=== PATIENT | female | born 1980 | race Caucasian/White ===

== ENCOUNTER 2022-10-31 11:26 | Emergency (ER) | payer OTHER, BC ==
[2022-10-31] MEDS ORDERED: Ondansetron 4 MG/2 ML SDV IVPUSH ONE (11:54)
[2022-10-31 12:09] LABS: ANION GAP 11.3 mmol/L (5-15)
[2022-10-31] MEDS ORDERED: Tamsulosin 0.4 MG Cap.ER PO ONE (12:15)
[2022-10-31] MEDS ORDERED: Sodium Chloride 0.9% 1,000 ML IV ONE (12:15)
[2022-10-31] MEDS ORDERED: Ketorolac 30 MG/ML SDV IVPUSH ONE (12:19)
== END 2022-10-31 13:40 | disposition home or self-care (01) ==
LOC: KA.ED 11:26
DX: N20.0 Calculus of kidney (principal); Z88.1 Allergy status to other antibiotic agents; Z88.6 Allergy status to analgesic agent; Z79.899 Other long term (current) drug therapy
CPT/HCPCS: 36415; 74176; 80053; 81001; 83690; 85025; 96361; 96374; 96375; 99284; 99285-25; A9270-GY; J1885; J2405; J7030

== ENCOUNTER 2022-10-31 14:16 | Observation (INO) | payer OTHER, BC ==
[2022-10-31] MEDS ORDERED: HYDROmorphone 1 MG/ML Syringe ONE (14:26)
[2022-10-31] MEDS ORDERED: Sodium Chloride 0.9% 1,000 ML IV ONE ×2 (14:34→17:29)
[2022-10-31] MEDS ORDERED: Metoclopramide 10 MG/2 ML SDV IVPUSH ONE (14:34)
[2022-10-31] MEDS ORDERED: HYDROmorphone 1 MG/ML Syringe IVPUSH ONE (14:34)
[2022-10-31] MEDS ORDERED: Furosemide 40 MG/4 ML VIAL IVPUSH ONE ×2 (14:49→17:30)
[2022-10-31] MEDS ORDERED: fentaNYL 100 MCG/2 ML SDV IVPUSH ONE (15:04)
[2022-10-31] MEDS: fentaNYL 100 MCG/2 ML SDV ONE ×2 (15:08→15:09)
[2022-10-31] MEDS: Pregabalin 25 MG Cap PO SCH ×2 (15:20→20:48)
[2022-10-31] MEDS: HYDROmorphone 1 MG/ML Syringe IVPUSH ONE ×2 (16:48→17:04)
[2022-10-31] MEDS ORDERED: LORazepam 2 MG/ML SDV IVPUSH ONE (17:38)
[2022-10-31] MEDS ORDERED: Ondansetron 4 MG/2 ML SDV IVPUSH ONE (17:38)
[2022-10-31] MEDS ORDERED: Acetaminophen/HYDROcodone 325-5 MG Tab PO PRN (19:50)
[2022-10-31] MEDS ORDERED: Acetaminophen 500 MG Tab PO PRN (19:50)
[2022-10-31] MEDS ORDERED: Ondansetron 4 MG Tab.DIS PO PRN (19:51)
[2022-10-31] MEDS ORDERED: IBUPROFEN 800 MG PO PRN (19:51)
[2022-10-31] MEDS ORDERED: Ondansetron 4 MG/2 ML SDV IVPUSH PRN (20:02)
[2022-10-31] MEDS ORDERED: LORazepam 0.5 MG Tab PO ONE (20:05)
[2022-10-31] MEDS ORDERED: fentaNYL 100 MCG/2 ML SDV IVPUSH PRN (20:09)
[2022-10-31] MEDS ORDERED: valACYclovir 500 MG Tab PO PRN (20:23)
[2022-10-31] MEDS ORDERED: Sodium Chloride 0.9% 1,000 ML IV SCH (20:30)
[2022-10-31] MEDS ORDERED: Ibuprofen 400 MG Tab PO PRN (20:30)
[2022-10-31] MEDS: Acetaminophen/HYDROcodone 325-5 MG Tab**OWN MED PO PRN (22:05)
[2022-11-01] MEDS: Acetaminophen/HYDROcodone 325-5 MG Tab**OWN MED PO PRN (02:29)
[2022-11-01] MEDS ORDERED: Tamsulosin 0.4 MG Cap.ER PO SCH (09:00)
[2022-11-01] MEDS ORDERED: Tamsulosin 0.4 MG Cap.ER**OWN MED PO SCH (09:00)
[2022-11-01] MEDS: Pregabalin 25 MG Cap PO SCH (09:37)
[2022-11-01] MEDS ORDERED: Sodium Chloride 0.65% Nasal Spray 45 ML Bottle NAS PRN (10:56)
== END 2022-11-01 12:30 | disposition home or self-care (01) ==
LOC: KA.ED 14:16 → KA.MS 17:39 → UNDODISOB 11-01 12:30
PROVIDERS: ADMIT Family Medicine; ATTEND Family Medicine
DX: N20.0 Calculus of kidney (principal); Z79.899 Other long term (current) drug therapy; Z79.82 Long term (current) use of aspirin; Z88.1 Allergy status to other antibiotic agents; Z88.6 Allergy status to analgesic agent
CPT/HCPCS: 82365; 96361; 96374; 96375; 96376; 99284; A9270; G0378; J1170; J1940; J2060; J2405; J2765; J3010; J7030

== ENCOUNTER 2023-08-21 11:55 | Emergency (ER) | payer OTHER, BC ==
[2023-08-21] MEDS ORDERED: Ketorolac 30 MG/ML SDV IVPUSH ONE (12:24)
[2023-08-21] MEDS ORDERED: HYDROmorphone 1 MG/ML Syringe IVPUSH ONE ×2 (12:39→14:04)
[2023-08-21 12:44] LABS: APPEARANCE,URINE SLIGHTLY CLOUDY (CLEAR); BILIRUBIN,URINE NEGATIVE (NEGATIVE); COLOR,URINE YELLOW (YELLOW); GLUCOSE,URINE NEGATIVE (NEGATIVE); KETONES,URINE 15 mg/dL (NEGATIVE); LEUKOCYTE ESTERASE,URINE NEGATIVE (NEGATIVE); NITRITE,URINE NEGATIVE (NEGATIVE); OCCULT BLOOD,URINE TRACE-INTACT (NEGATIVE); PROTEIN,URINE NEGATIVE (NEGATIVE); UROBILINOGEN,URINE 0.2 E.U./dL (0.2-1.0)
[2023-08-21 12:52] LABS: BASOPHILS ABSOLUTE AUTO 0.02 10^3/uL (0.00-0.10); BASOPHILS PERCENT AUTO 0.2 % (0.0-1.0); EOSINOPHILS ABSOLUTE AUTO 0.03 10^3/uL (0.10-0.30); EOSINOPHILS PERCENT AUTO 0.3 % (1.0-3.0); HEMATOCRIT 36.6 % (37.0-47.0); HEMOGLOBIN 12.6 g/dL (12.0-16.0); IMMATURE GRAN ABSOLUTE AUTO 0.03 10^3/uL (0.00-0.50); IMMATURE GRAN PERCENT AUTO 0.3 % (0.0-5.0); LYMPHOCYTES ABSOLUTE AUTO 2.01 10^3/uL (1.00-4.00); MEAN CORPUSCULAR HEMOGLOBIN 32.4 pg (27.0-31.0); MEAN CORPUSCULAR HGB CONC 34.4 g/dL (32.0-36.0); MEAN CORPUSCULAR VOLUME 94.1 fL (82.0-92.0); MEAN PLATELET VOLUME 9.7 fL (7.4-10.4); MONOCYTES ABSOLUTE AUTO 0.68 10^3/uL (0.10-0.80); MONOCYTES PERCENT AUTO 5.7 % (2.0-8.0); NEUTROPHILS ABSOLUTE AUTO 9.08 10^3/uL (2.50-7.00); NEUTROPHILS PERCENT AUTO 76.5 % (50.0-70.0); PLATELET COUNT,PLT 153 10^3/uL (150-400); RED BLOOD CELL COUNT 3.89 10^6/uL (3.80-5.50); RED CELL DISTRIBUTION WIDTH 11.4 % (11.5-14.5); WHITE BLOOD CELL COUNT,WBC 11.85 10^3/uL (5.00-10.00)
[2023-08-21 12:56] LABS: BACTERIA,URINE RARE /HPF (NONE TO FEW); EPITHELIAL CELLS,URINE FEW /LPF; GRANULAR CASTS,URINE FEW; WBC,URINE 0-5 /HPF (0-5)
[2023-08-21] MEDS ORDERED: Tamsulosin 0.4 MG Cap.ER PO ONE (13:00)
[2023-08-21 13:07] LABS: ALBUMIN 3.56 g/dL (3.40-5.00); ANION GAP 8.5 mmol/L (5-15); BILIRUBIN TOTAL 0.4 mg/dL (0.2-1.0); CALCIUM 7.9 mg/dL (8.7-10.3); CARBON DIOXIDE,CO2 23.6 mmol/L (21.0-32.0); CREATININE 0.73 mg/dL (0.51-1.17); EST CRCL DRUG DOSING (CG) 73.44 mL/min; POTASSIUM,K 3.1 mmol/L (3.5-5.1); PROTEIN TOTAL,TP 6.6 g/dL (6.4-8.2)
[2023-08-21] MEDS ORDERED: Sodium Chloride 0.9% 1,000 ML IV ONE (13:07)
[2023-08-21] MEDS ORDERED: Acetaminophen/HYDROcodone 325-10 MG Tab PO ONE (14:33)
[2023-08-21] MEDS ORDERED: Ondansetron 4 MG Tab.DIS ONE (15:02)
[2023-08-21] MEDS ORDERED: Ondansetron 4 MG Tab.DIS PO ONE (15:04)
== END 2023-08-21 15:05 | disposition home or self-care (01) ==
LOC: KA.ED 11:55
DX: N13.2 Hydronephrosis with renal and ureteral calculous obstruction (principal); J45.909 Unspecified asthma, uncomplicated; M19.90 Unspecified osteoarthritis, unspecified site; Z86.16 Personal history of COVID-19; Z79.899 Other long term (current) drug therapy; Z88.1 Allergy status to other antibiotic agents; Z88.5 Allergy status to narcotic agent
CPT/HCPCS: 36415; 74176; 80053; 81001; 85025; 96361; 96374; 96375; 96376; 99285; A9270; J1170; J1885; J7030